=== PATIENT | female | born 1965 | race Caucasian/White ===

== ENCOUNTER → 2024-03-06 14:32 | Outpatient (REF) | payer OTHER, SELFPAY | LOC: HWRAD 14:32 | PROVIDERS: ATTENDING PHYSICIAN Student in an Organized Health Care Education/Training Program; FAMILY PHYSICIAN Family Medicine | DX: N95.0 Postmenopausal bleeding (principal); Z12.31 Encounter for screening mammogram for malignant neoplasm of breast | CPT/HCPCS: 76830; 76856; 77063; 77067 ==

== ENCOUNTER 2024-03-09 06:35 | Day surgery (SDC) | payer OTHER, SELFPAY ==
[2024-03-06 10:30] VITALS: BMI 38.5
[2024-03-06 10:53] LABS: % Basophils 0.4 % (0-2); % Eosinophils 1.7 % (0-6); % Immature Granulocytes 0.2 % (0-0.5); % Lymphocytes 36.3 % (20.5-51.1); % Monocytes 6.2 % (1.7-9.3); % Neutrophils 55.2 % (42.2-75.2); Absolute Eosinophils 0.1 10^3/uL (0-0.7); Absolute Monocytes 0.5 10^3/uL (0.1-0.6); Absolute Neutrophils 4.5 10^3/uL (1.4-6.5); Hematocrit 41.7 % (37.0-47.0); Hemoglobin 13.6 g/dL (12.0-16.0); Mean Corp Hgb Conc. 32.6 g/dL (33.0-37.0); Mean Corpuscular Hgb 30.1 pg (27.0-31.0); Mean Corpuscular Volume 92.3 fL (81.0-99.0); Mean Platelet Volume 8.8 fL (7.4-10.4); Nucleated Red Blood Cells % 0 %; Platelet Count 361 10^3/uL (130-400); Red Blood Cell Count 4.52 10^6/uL (4.20-5.40); Red Cell Dist. Width 13.5 % (11.5-14.5); White Blood Cell Count 8.2 10^3/uL (4.8-10.8)
[2024-03-06 11:10] LABS: Blood Urea Nitrogen 21 mg/dl (7-17); Calcium 9.1 mg/dl (8.4-10.2); Carbon Dioxide 27 mmol/L (22-30); Chloride 101 mmol/L (98-107); Estimated Creatinine Clearance 86 ml/min; Glucose 80 mg/dl (70-99); Potassium 4.7 mmol/L (3.5-5.1); Sodium 141 mmol/L (135-145); eGFR > 60.00
--- NOTE | 2024-03-08 17:46 | HPS.HSE ---
Family Physician
-
Family Physician: Adair Khan, DO
Chief Complaint
-
post menopausal bleeding
History of Present Illness
Patient is a 58yo who presents for preop for hysteroscopy D&C. Patient had postmenopausal bleeding last week that was like a period. She had an endometrial biopsy that showed weakly proliferative endometrium with extensive stromal breakdown.
Patient has not had any further bleeding since the procedure. She has an ultrasound scheduled for March 06.�
OBHx:
SVDx4, demise G4
Gynhx: menopause at age 52, denies history of abnormal Pap smears or STDs
PMHx: HTN, kidney stones, anxiety, obesity
Meds: Irbesartan, wegovy, fluoxetine, wellbutrin, multivitamin, magnesium, vitamin D
Surghx: lap les, open appendectomy, cystoscopy w/ lithotripsy, saphenous vein removal, hand surgery
All: PCN- anaphylaxis
Socialhx: occasional wine, denies tobacco or illicit drug use
Famhx: brother w/ colon cancer
Medical History
Past Medical History
Past Medical History: Reports HTN
Additional Past Medical History:
HTN, kidney stones, anxiety, obesity
Past Surgical History: Reports Appendectomy, Cholecystectomy and Urological
Additional Past Surgical History:
lap les, open appendectomy, cystoscopy w/ lithotripsy, saphenous vein removal, hand surgery
Social History
Alcohol: Occasional
Family History
Family History: Not pertinent
Allergies / Home Medications
Allergies reflects when Allergies were last updated in [facility].
Home Medications with original date entered in [facility]
Allergy/Medication List:
Allergies: PCN- anaphylaxis
Medications: �Irbesartan, wegovy, fluoxetine, wellbutrin, multivitamin, magnesium, vitamin D
Review of Systems
-
A 12 point ROS was completed and negative except as noted: Yes
Physical Exam
Physical Exam
General: Well Developed and No Apparent Distress
HEENT: NormoCephalic
Respiratory: Non Labored Respirations
Cardiac: Regular Rhythm
GI: Soft, Non Tender and Non Distended
Skin: Warm and Dry
Neuro: Awake and Alert
Psych: Calm
Laboratory Results
-
03/06/24 08:48
03/06/24 08:48
Impression/Plan
-
IMPRESSION: Patient is a 58yo who presents for preop for hysteroscopy D&C
PLAN:
Patient with postmenopausal bleeding and EMB with�weakly proliferative endometrium with extensive stromal breakdown. Discussed with patient these are not cells we would normally see in postmenopausal patient and an endometrial biopsy only takes a
blind sample of the endometrium. Recommend proceeding with hysteroscopy D&C to get a complete sample of the endometrium to rule out presence of any precancerous or cancerous cells. Pelvic US with ET of 4mm.. Plan for hysteroscopy D&C on 03/09.
Risks, benefits, and alternatives discussed and all questions answered. Consents were signed. Patient agreeable to blood transfusion in case of emergency.�
[2024-03-09] VITALS (9 sets, daily range): BP systolic 113–135; BP diastolic 68–94; BMI 38.5
[2024-03-09] MEDS: TYLENOL 650 MG PO (15:27)
--- NOTE | 2024-03-10 08:13 | OR.RPT ---
Operative Report
Operative Report
Preop diagnosis:
- Postmenopausal bleeding
Postop diagnosis
- Postmenopausal bleeding
- Endometrial polyp
Procedure
- Hysteroscopy, dilation and curettage
- Polypectomy
Surgeon: Taisha
Anesthesia: General, Dr. Rojas
EBL 5cc
Complications: none
Findings
- Normal appearing external genitalia
- Cervix without lesions or masses
- Bimanual exam limited secondary to body habitus. Uterus normal size, anteverted
- Hysteroscopic evaluation revealed 1-2cm endometrial polyp on the anterior surface of the endometrium near the uterine fundus. Atrophic endometrium
Pathology: endometrial curettings, endometrial polyp
Indication:
Patient is a 58yo who presents for hysteroscopy, dilation and curettage. She had an episode of postmenopausal bleeding. An endometrial biopsy was completed in the office and pathology showed weekly proliferative endometrium with extensive
stromal breakdown. Pelvic ultrasound showed an endometrial thickness of 4mm. Given pathology on endometrial biopsy, it was recommended to proceed with hysteroscopy, dilation and curettage for further sampling. Risks, benefits and alternatives to the
procedure were discussed and all questions answered. Consents were signed.
Procedure:
Patient was taken to the operating room and placed under general anesthesia. She was placed in the dorsal lithotomy position with Justin type stirrups. She was prepped and draped in the normal sterile fashion. Bimanual exam revealed the
aforementioned findings. The bladder was drained with a straight catheter yielding 10cc of clear urine. A Christy retractor was placed in the anterior portion of the vagina and a Christy retractor in the posterior aspect of the vagina revealing good
visualization the cervix. The anterior lip of the cervix was grasped with a single tooth tenaculum. The cervix was sequentially dilated to accommodate the Myosure hysteroscope. The hysteroscope was advanced under direct visualization. Hysteroscopic
evaluation revealed the aforementioned findings. The endometrial polyp was removed using the Myosure resecting device. The hysteroscope was removed. A size 0 curette was introduced into the cervix. The uterus was curetted in a clockwise fashion
until uterine cry was felt in all quadrants. Endometrial curettings were sent to pathology for evaluation. The tenaculum was removed from the cervix and good hemostasis was noted. All instruments were removed from the vagina.
The patient tolerated the procedure well. All sponge and instrument counts were correct x2. She was taken to PACU in stable condition.
== END 2024-03-09 15:50 | disposition home or self-care (01) ==
LOC: SDS 06:35
PROVIDERS: ATTENDING PHYSICIAN Student in an Organized Health Care Education/Training Program; FAMILY PHYSICIAN Family Medicine
DX: N95.0 Postmenopausal bleeding (principal); N84.0 Polyp of corpus uteri
CPT/HCPCS: 58558; 88305; 36415; 80048; 85025; 86850; 86900; 86901; 93005

== ENCOUNTER 2024-06-16 06:25 | Day surgery (SDC) | payer OTHER, SELFPAY | END 2024-06-16 15:35 | disposition home or self-care (01) | LOC: GI 06:25 | PROVIDERS: ATTENDING PHYSICIAN Internal Medicine Gastroenterology | DX: Z12.11 Encounter for screening for malignant neoplasm of colon (principal); Z80.0 Family history of malignant neoplasm of digestive organs; K64.8 Other hemorrhoids | CPT/HCPCS: G0105 ==